=== PATIENT | female | born 1940 | race Caucasian/White ===

== ENCOUNTER → 2017-05-21 | Outpatient (CLI) | payer OTHER ==
[~2017-05-21] MED LIST: ASPI81TA21 PO; BENA40TA6 PO; CYAN100028 PO; GINK40TA2 PO; ISOS120T5 PO; LPT40 PO; MULT-240 PO; NTRGSL/4 UT
--- NOTE | 2017-05-21 14:44 | DIAGNOSTIC IMAGING REPORT ---
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 No acute fracture or dislocation is seen. Mild genu valgum deformity noted. There is a moderate size right knee joint effusion. Peripheral vascular calcifications are seen. Left knee: There is moderate lateral compartment, medial medial and patellofemoral compartment osteoarthritis. There is no acute fracture or dislocation identified. Genu valgum noted. Bones are mildly demineralized. Peripheral vascular calcifications are seen. There is a large knee joint effusion. IMPRESSION: 1. 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 Moderate right and large left knee joint effusions. 3. No acute fracture or dislocation. 4. Peripheral vascular disease. The above report was generated using voice recognition software. It may contain grammatical, syntax or spelling errors. Electronically signed by: Finn Sandoval M.D. 05/21/2017 2:42 PM Dictated Date/Time: 05/21/2017 2:36 PM
== END | disposition home or self-care (01) ==
LOC: C.RDSM 08:23
PROVIDERS: ATTEND Physician Assistant
DX: G89.29 Other chronic pain (principal); M25.561 Pain in right knee; M25.562 Pain in left knee; M25.461 Effusion, right knee; M25.462 Effusion, left knee; I73.9 Peripheral vascular disease, unspecified

== ENCOUNTER → 2017-08-04 | Outpatient (CLI) | payer OTHER ==
[2017-08-04 17:06] LABS: AST/SGOT 12 U/L (15-37); BLOOD UREA NITROGEN 12 mg/dl (7-18); BUN/CREATININE RATIO 18.5 (10-20); CALCIUM 8.9 mg/dl (8.5-10.1); CARBON DIOXIDE 27 mmol/L (21-32); CHLORIDE 106 mmol/L (98-107); CREATININE 0.67 mg/dl (0.60-1.20); GLUCOSE 102 mg/dl (70-99); POTASSIUM 3.9 mmol/L (3.5-5.1); SODIUM 141 mmol/L (136-145)
[2017-08-04 17:09] LABS: ALKALINE PHOSPHATASE 119 U/L (45-117); ALT/SGPT 21 U/L (12-78); CHOLESTEROL 172 mg/dl (0-200); CHOLESTEROL/HDL RATIO 2.6; HDL CHOLESTEROL 66 mg/dl; LDL CHOLESTEROL CALCULATED 86 mg/dl; TRIGLYCERIDES 101 mg/dl (0-150); VERY LOW DENSITY LIPOPROT CALC 20 mg/dl
== END | disposition home or self-care (01) ==
LOC: C.LAB1850 15:33
PROVIDERS: ATTEND Internal Medicine
DX: E55.9 Vitamin D deficiency, unspecified (principal); E78.5 Hyperlipidemia, unspecified